=== PATIENT | male | born 1980 | race African-American/Black ===

== ENCOUNTER 2018-05-21 03:39 | Emergency (ER) | payer OTHER, MEDICAID, SELFPAY ==
--- NOTE | 2018-05-21 03:42 | DI.CT.S_ITS ---
PROCEDURE: CT HEAD/BRAIN WO CON INDICATIONS: visual change, confusion TECHNIQUE: Noncontrast 4.5 mm thick angled axial sections acquired from the foramen magnum to the vertex, with coronal and sagittal reformats. For radiation dose reduction, the following was used: automated exposure control, adjustment of mA and/or kV according to patient size. COMPARISON: None. FINDINGS: Image quality: Excellent. CSF spaces: Basal cisterns are patent. No extra-axial fluid collections. Ventricles are normal in size and shape. Brain: No midline shift. No intracranial masses or hemorrhage. Merchant-white matter interface is normal. Skull and face: Calvarium and visualized facial bones are intact, without suspicious lesions. Sinuses: Visualized sinuses and mastoids are clear. IMPRESSION: No acute intracranial disease process. Dictated by: Ambar Hernandez MD, PhD on 05/21/2018 at 7:28 Approved by: Ambar Hernandez MD, PhD on 05/21/2018 at 7:31
[2018-05-21 03:47] VITALS: BP 137/97; PULSE 77; RESP 20; TEMP 36.7; O2SAT 98; BMI 24.7
--- NOTE | 2018-05-21 04:07 | ED_ITS ---
HPI - Psych General Chief Complaint: Eye Problems Stated Complaint: seeing flashing lights confused Time Seen by Provider: 05/21/18 03:42 Source: patient Mode of arrival: ambulatory Limitations: no limitations History of Present Illness HPI Narrative: 38-year-old male smoker with history of smoking methamphetamines and untreated mental illness presents with a chief complaint some confusion, paranoia and a brief episode of seeing spots just prior to arrival. He denies any recent injury, falls or assaults. He has had no fever or chills. He denies nausea, vomiting or diarrhea. He states he has not taken bipolar medications in 2 years and does okay with controlling diet, exercise and avoiding significant alcohol and street drugs. He states nothing is significantly out of the normal in terms of his routine lately but he has this episode tonight which has bothered him. He last used methamphetamines 2 weeks ago per his own admission Onset (ago): hour(s) Duration: constant History of same: Yes Relieving factors: none Exacerbating factors: alcohol and drug use Context: recent drug abuse Associated psychiatric symptoms: racing thoughts Associated symptoms: confusion Treatments prior to arrival: none Related Data Home Medications Medication Instructions Recorded Confirmed DIVALPROEX SODIUM (Depakote) 250 mg PO BID #0 04/30/06 LITHIUM CARBONATE (Eskalith) 300 mg PO BID #0 04/30/06 QUETIAPINE FUMARATE (Seroquel) 50 mg PO #0 04/30/06 QUETIAPINE FUMARATE (Seroquel) 200 mg PO #0 04/30/06 Allergies Allergy/AdvReac Type Severity Reaction Status Date / Time No Known Drug Allergies Allergy Verified 05/21/18 03:58 Review of Systems Constitutional Denies chills, Denies fever(s), Denies lethargy and Denies weakness Eyes Reports change in vision, Denies eye discharge, Denies irritation, Denies loss of vision and Reports seeing flashes ENT Ears, Nose, Mouth, and Throat: Denies change in voice, Denies neck pain and Denies sore throat Cardiovascular Denies chest pain, Denies irregular heart rhythm, Denies lightheadedness, Denies palpitations, Denies dyspnea, Denies dyspnea on exertion and Denies orthopnea Respiratory Denies cough, Denies dyspnea, Denies dyspnea on exertion and Denies wheezing Gastrointestinal Gastrointestinal: Denies abdominal pain, Denies change in bowel habits, Denies diarrhea, Denies nausea and Denies vomiting Genitourinary Denies hematuria, Denies flank pain, Denies urinary incontinence and Denies urinary urgency Musculoskeletal Denies neck pain Integumentary/Breasts Denies pruritus, Denies erythema, Denies rash and Denies wounds Neurologic Reports confusion, Denies loss of vision and Denies weakness Psychiatric Denies anxiety, Reports confusion, Denies depression, Denies homicidal ideation and Denies suicidal ideation Endocrine Denies palpitations Hematologic/Lymphatic Denies easy bruising Allergic/Immunologic Denies wheezing [facility] Social History (Updated 05/21/18 @ 04:34 by Jesus Haynes DO) Smoking Status: Current every day smoker alcohol intake: current substance use type: methamphetamine Exam Narrative Exam Narrative: GENERAL: 38-year-old male is very pleasant and interactive. He does have racing and paranoid thoughts HEAD: Atraumatic. Normocephalic. No temporal or scalp tenderness. EYES: Pupils equal round and reactive. Extraocular motions intact. No scleral icterus. No injection or drainage. ENT: Nose without bleeding, purulent drainage or septal hematoma. Throat without erythema, tonsillar hypertrophy or exudate. Uvula midline. Airway patent. NECK: Trachea midline. No JVD or lymphadenopathy. Supple, nontender, no meningeal signs. CARDIOVASCULAR: Regular rate and rhythm without murmurs, gallops, or rubs. RESPIRATORY: Clear to auscultation. Breath sounds equal bilaterally. No wheezes, rales, or rhonchi. GASTROINTESTINAL: Abdomen soft, non-tender, nondistended. No hepato- splenomegaly, or palpable masses. No guarding. EXTREMITIES: No clubbing, cyanosis, or edema. No joint tenderness, effusion, or edema noted. BACK: Nontender without deformity or crepitance. No flank tenderness. NEURO: AOx3. Rapid, pressured speech, but coherent SKIN: No rash or erythema. Initial Vital Signs Initial Vital Signs: Vital Signs Temperature 98.1 F 05/21/18 03:47 Pulse Rate 77 05/21/18 03:47 Respiratory Rate 20 05/21/18 03:47 Blood Pressure 137/97 H 05/21/18 03:47 Pulse Oximetry 98 05/21/18 03:47 Course Orders Ordered: ED Orders 05/21/18 03:42 CT head/brain wo con Stat 05/21/18 04:03 Basic Metabolic Panel Stat Complete Blood Count AUTO DIFF Stat [place] Stat 05/21/18 04:19 Urinalysis Sreen (Dip Only) Stat Urine Drug Screen, Rapid Stat Discontinued Medications Olanzapine (Zyprexa Zydis) 10 mg PO NOW ONE Stop: 05/21/18 04:58 Last Admin: 05/21/18 05:03 Dose: 10 mg Vital Signs - 8 hr 05/21/18 03:47 Temperature 98.1 F Pulse Rate 77 Respiratory Rate 20 Blood Pressure 137/97 H Pulse Oximetry 98 MDM - Psych Lab Data Result diagrams: 05/21/18 04:03 05/21/18 04:03 Lab Results 05/21/18 05/21/18 05/21/18 Range/Units 04:03 04:03 04:03 WBC 8.9 (4.5-11.0) X10^3/uL RBC 4.95 (4.5-5.9) X10^6/uL Hgb 13.7 (13.5-17.5) g/dL Hct 39.8 L (41-53) % MCV 80.4 (80-100) fL MCH 27.6 (26-34) PG MCHC 34.4 (30-36) % RDW 14.1 (11.6-14.8) % Plt Count 192 (150-400) X10^3/uL Neut % (Auto) 69.9 (50-75) % Lymph % (Auto) 23.2 L (25-40) % [place] % (Auto) 6.0 (3-14) % Eos % (Auto) 0.5 L (2-4) % Baso % (Auto) 0.4 (0-2) % Neut # (Auto) 6200 (0360-4935) /uL Lymph # (Auto) 2100 (6100-0997) /uL [place] # (Auto) 500 (0-900) /uL Eos # (Auto) 0 (0-450) /uL Baso # (Auto) 0 (0-100) /uL Sodium 142 (137-145) mmol/L Potassium 3.6 (3.4-5.1) mmol/L Chloride 104 (98-107) mmol/L Carbon Dioxide 27 (22-32) mmol/L BUN 21 H (9-20) mg/dL Creatinine 1.00 (0.66-1.25) mg/dL Estimated GFR > 60.0 (>60) mL/min BUN/Creatinine Ratio 21.0 (6-22) Glucose 90 (70-100) mg/dL Calcium 9.6 (8.4-10.2) mg/dL Urine Color Urine Appearance Urine pH (4.5-8.0) Ur Specific [place] (1.000-1.035) Urine Protein (Negative) Urine Glucose (UA) (Negative) g/dL Urine Ketones (NEGATIVE) Urine Occult Blood (Negative) Urine Nitrate (Negative) Urine Bilirubin (NEGATIVE) Urine Urobilinogen (0.2) E.U./dL Ur Leukocyte Esterase (NEGATIVE) Urine Opiates Screen (Negative) Ur Oxycodone Screen (Negative) Urine Methadone Screen (Negative) Ur Barbiturates Screen (Negative) U Tricyclic Antidepress (Negative) Ur Phencyclidine Scrn (Negative) Ur Amphetamines Screen (Negative) U Methamphetamines Scrn (Negative) Ur MDMA Scrn (Ecstasy) (Negative) U Benzodiazepines Scrn (Negative) [place] < 0.2 L (0.6-1.2) mmol/L Urine Cocaine Screen (Negative) U Marijuana (THC) Screen (Negative) 05/21/18 05/21/18 Range/Units 04:19 04:19 WBC (4.5-11.0) X10^3/uL RBC (4.5-5.9) X10^6/uL Hgb (13.5-17.5) g/dL Hct (41-53) % MCV (80-100) fL MCH (26-34) PG MCHC (30-36) % RDW (11.6-14.8) % Plt Count (150-400) X10^3/uL Neut % (Auto) (50-75) % Lymph % (Auto) (25-40) % [place] % (Auto) (3-14) % Eos % (Auto) (2-4) % Baso % (Auto) (0-2) % Neut # (Auto) (4852-6339) /uL Lymph # (Auto) (3148-4301) /uL [place] # (Auto) (0-900) /uL Eos # (Auto) (0-450) /uL Baso # (Auto) (0-100) /uL Sodium (137-145) mmol/L Potassium (3.4-5.1) mmol/L Chloride (98-107) mmol/L Carbon Dioxide (22-32) mmol/L BUN (9-20) mg/dL Creatinine (0.66-1.25) mg/dL Estimated GFR (>60) mL/min BUN/Creatinine Ratio (6-22) Glucose (70-100) mg/dL Calcium (8.4-10.2) mg/dL Urine Color Yellow Urine Appearance Clear Urine pH 6.5 (4.5-8.0) Ur Specific [place] 1.025 (1.000-1.035) Urine Protein 1+ H (Negative) Urine Glucose (UA) Negative (Negative) g/dL Urine Ketones 1+ H (NEGATIVE) Urine Occult Blood Negative (Negative) Urine Nitrate Negative (Negative) Urine Bilirubin Negative (NEGATIVE) Urine Urobilinogen 1.0 (0.2) E.U./dL Ur Leukocyte Esterase Negative (NEGATIVE) Urine Opiates Screen Negative (Negative) Ur Oxycodone Screen Negative (Negative) Urine Methadone Screen Negative (Negative) Ur Barbiturates Screen Negative (Negative) U Tricyclic Antidepress Negative (Negative) Ur Phencyclidine Scrn Negative (Negative) Ur Amphetamines Screen Positive H (Negative) U Methamphetamines Scrn Positive H (Negative) Ur MDMA Scrn (Ecstasy) Positive H (Negative) U Benzodiazepines Scrn Negative (Negative) [place] (0.6-1.2) mmol/L Urine Cocaine Screen Negative (Negative) U Marijuana (THC) Screen Negative (Negative) Imaging Data CT scan - head: Radiologist's impression: NAP Discharge Plan Departure Patient Disposition: Home Clinical Impression: Manic behavior, Polysubstance abuse Instructions: DI for Bipolar Disorder Activity Restrictions/Additional Instructions: *You have been diagnosed with [ bipolar disorder, polysubstance abuse ] *What to do: *Take medications as directed *Follow up with your primary care provider in 2-3 days, call for an appointment. Let them know you were seen in the Emergency Department and that we ask that you be seen in follow up *Return to ER if you should have any new, worsening or concerning symptoms Prescriptions: No Action LITHIUM CARBONATE (Eskalith) 300 mg PO BID Qty: 0 RF: 0 QUETIAPINE FUMARATE (Seroquel) 50 mg PO Qty: 0 RF: 0 DIVALPROEX SODIUM (Depakote) 250 mg PO BID Qty: 0 RF: 0 QUETIAPINE FUMARATE (Seroquel) 200 mg PO Qty: 0 RF: 0 Referrals: [facility] [Outside]
[2018-05-21 04:16] LABS: Add Manual Diff / Slide Review NO; Basophils Absolute Auto 0 /uL (0-100); Basophils Percent Auto 0.4 % (0-2); Eosinophils Absolute Auto 0 /uL (0-450); Eosinophils Percent Auto 0.5 % (2-4); Hematocrit 39.8 % (41-53); Hemoglobin 13.7 g/dL (13.5-17.5); Lymphocytes Absolute Auto 2100 /uL (1100-4500); Lymphocytes Percent Auto 23.2 % (25-40); Mean Corpuscular HGB Conc 34.4 % (30-36); Mean Corpuscular Hemoglobin 27.6 PG (26-34); Mean Corpuscular Volume 80.4 fL (80-100); Monocytes Absolute Auto 500 /uL (0-900); Neutrophils Absolute Auto 6200 /uL (1500-7000); Neutrophils Percent Auto 69.9 % (50-75); Platelet Count 192 X10^3/uL (150-400); Red Blood Cell Count 4.95 X10^6/uL (4.5-5.9); Red Cell Distribution Width 14.1 % (11.6-14.8); White Blood Cell Count 8.9 X10^3/uL (4.5-11.0)
[2018-05-21 04:24] LABS: Blood Urea Nitrogen 21 mg/dL (9-20); Calcium 9.6 mg/dL (8.4-10.2); Carbon Dioxide 27 mmol/L (22-32); Chloride 104 mmol/L (98-107); Estimated Glomerular Filt Rate > 60.0 mL/min (>60); Glucose 90 mg/dL (70-100); HEMOLYSIS < 15 (0-50); Potassium 3.6 mmol/L (3.4-5.1); Sodium 142 mmol/L (137-145)
[2018-05-21 04:25] LABS: Appearance Urine UA CLEAR; Bilirubin Urine UA NEGATIVE (NEGATIVE); Color Urine UA YELLOW; Glucose Urine UA NEGATIVE (Negative); Ketones Urine UA 1+ (NEGATIVE); Leukocyte Esterase Urine UA NEGATIVE (NEGATIVE); Nitrite Urine UA NEGATIVE (Negative); Occult Blood Urine UA NEGATIVE (Negative); Protein Urine UA 1+ (Negative); Specific Gravity Urine UA 1.025 (1.000-1.035); pH Urine UA 6.5 (4.5-8.0)
[2018-05-21 04:29] LABS: Urine Tetrahydrocannabinol Negative (Negative)
[2018-05-21 04:30] LABS: Urine Amphetamines Positive (Negative); Urine Barbiturates Negative (Negative); Urine Benzodiazepines Negative (Negative); Urine Cocaine Negative (Negative); Urine MDMA Positive (Negative); Urine Methadone Negative (Negative); Urine Methamphetamines Positive (Negative); Urine Morphine/Opi cutoff 2000 Negative (Negative); Urine Oxycodone Negative (Negative); Urine Phencyclidine Negative (Negative); Urine Tricyclic Antidepressant Negative (Negative)
[2018-05-21 04:32] LABS: Lithium < 0.2 mmol/L (0.6-1.2)
[2018-05-21] MEDS: OLANZapine ODT 10 MG TAB PO (05:03)
[2018-05-21 05:40] VITALS: BP 135/87; PULSE 113; RESP 20; O2SAT 96
== END 2018-05-21 05:37 | disposition home or self-care (01) ==
PROVIDERS: Emergency Provider Emergency Medicine
DX: F30.10 Manic episode without psychotic symptoms, unspecified (principal)
CPT/HCPCS: 36415; 70450; 80048; 80178; 80305; 81003; 85025

== ENCOUNTER 2018-05-21 07:36 | Emergency (ER) | payer OTHER, MEDICAID, SELFPAY ==
[2018-05-21] VITALS (18 sets, daily range): BP systolic 76–102; BP diastolic 49–82; PULSE 57–95; RESP 10–23; TEMP 36.2; O2SAT 97–100
[2018-05-21] MEDS: NALOXONE 0.4 MG/ML VIAL NASAL (07:45)
--- NOTE | 2018-05-21 07:45 | ED.AMS ---
HPI - Altered Mental Status General Chief Complaint: Toxicology Problem Stated Complaint: Altered Status Time Seen by Provider: 05/21/18 07:39 Source: EMS Mode of arrival: EMS Limitations: altered mental status History of Present Illness HPI narrative: 38-year-old male who was just discharged from this emergency department several hours ago with at times reported to be alert and oriented x3 was brought back into the emergency department by EMS after they were called because the patient [place]umbling in the road. There was no reports of trauma. arrived by EMS in on a backboard and a cervical collar unable to provide any HPI or review of systems Related Data Home Medications Medication Instructions Recorded Confirmed DIVALPROEX SODIUM (Depakote) 250 mg PO BID #0 04/30/06 LITHIUM CARBONATE (Eskalith) 300 mg PO BID #0 04/30/06 QUETIAPINE FUMARATE (Seroquel) 50 mg PO #0 04/30/06 QUETIAPINE FUMARATE (Seroquel) 200 mg PO #0 04/30/06 Allergies Allergy/AdvReac Type Severity Reaction Status Date / Time No Known Drug Allergies Allergy Verified 05/21/18 03:58 Review of Systems Review of Systems ROS Unobtainable: Unobtainable due to mental status/LOC Exam Initial Vital Signs Initial Vital Signs: Vital Signs Temperature 97.2 F L 05/21/18 07:40 Pulse Rate 70 05/21/18 07:40 Respiratory Rate 15 05/21/18 07:40 Blood Pressure 102/82 05/21/18 07:40 Pulse Oximetry 100 05/21/18 07:40 Const General: No acute distress Orientation: obtunded Limitations: altered mental status [facility] Head: normal to inspection and normocephalic Eyes Pupils: pupil size bilaterally 1 Resp Effort & Inspection: normal respiratory effort Auscultation: clear to auscultation bilaterally Cardio Rate: regular rate Rhythm: regular rhythm Pulses: radial pulses present GI Inspection: non-distended Palpation: soft Skin Rashes: no rashes Neuro Other: Moves all 4 extremities spontaneously, GCS of 10, does respond to his name however does not answer any questions. Extrem General: capillary refill normal and No edema Psych Appearance: grossly normal and well kempt Scores GCS [place] coma scale eye opening: To sound Kay coma scale verbal response: Sounds Kay coma scale motor response: Localising Kay coma scale total score: 10 Course Orders Ordered: ED Orders 05/21/18 07:56 CT head/brain wo con Stat 05/21/18 08:00 Complete Blood Count AUTO DIFF Stat Comprehensive Metabolic Panel Stat Ethanol (ETOH) Stat Lipase Stat Discontinued Medications Sodium Chloride (Normal Saline 0.9%) 1,000 mls @ 1,000 mls/hr IV BOLUS ONE Stop: 05/21/18 08:42 Last Infusion: 05/21/18 09:32 Dose: 0 mls/hr Admin: 05/21/18 08:04 Dose: 1,000 mls/hr Sodium Chloride (Normal Saline 0.9%) 1,000 mls @ 1,000 mls/hr IV BOLUS ONE Stop: 05/21/18 10:29 Last Infusion: 05/21/18 10:43 Dose: 0 mls/hr Admin: 05/21/18 09:33 Dose: 1,000 mls/hr Naloxone HCl (Narcan) 0.4 mg NASAL NOW ONE Stop: 05/21/18 07:44 Last Admin: 05/21/18 07:45 Dose: 0.4 mg Vital Signs - 8 hr 05/21/18 07:40 05/21/18 08:00 05/21/18 08:19 Temperature 97.2 F L Pulse Rate 70 73 72 Respiratory Rate 15 Blood Pressure 102/82 Blood Pressure [Left Arm] 94/73 85/59 L Pulse Oximetry 100 05/21/18 08:22 05/21/18 08:45 05/21/18 09:00 Temperature Pulse Rate 75 73 75 Respiratory Rate 12 13 13 Blood Pressure Blood Pressure [Left Arm] 82/56 L 81/56 L 81/63 L Pulse Oximetry 98 97 97 05/21/18 09:30 05/21/18 09:49 05/21/18 10:20 Temperature Pulse Rate 70 66 74 Respiratory Rate 23 14 13 Blood Pressure Blood Pressure [Left Arm] 76/57 L 84/62 L 77/49 L Pulse Oximetry 100 100 100 05/21/18 11:08 05/21/18 11:30 05/21/18 12:00 Temperature Pulse Rate 70 71 57 L Respiratory Rate 13 15 Blood Pressure Blood Pressure [Left Arm] 76/53 L 76/53 L 76/59 L Pulse Oximetry 100 100 100 05/21/18 12:18 05/21/18 12:30 05/21/18 12:59 Temperature Pulse Rate 67 70 74 Respiratory Rate 12 15 19 Blood Pressure Blood Pressure [Left Arm] 76/59 L 77/62 L 77/62 L Pulse Oximetry 100 100 100 05/21/18 13:04 05/21/18 13:30 Temperature Pulse Rate 95 H 79 Respiratory Rate 22 10 L Blood Pressure Blood Pressure [Left Arm] 80/60 L 82/59 L Pulse Oximetry 100 100 MDM - Altered Mental Status Lab Data Attestation: I reviewed the patient's lab results. Result diagrams: 05/21/18 08:00 05/21/18 08:00 Lab Results 05/21/18 05/21/18 Range/Units 08:00 08:00 WBC 8.4 (4.5-11.0) X10^3/uL RBC 4.89 (4.5-5.9) X10^6/uL Hgb 13.6 (13.5-17.5) g/dL Hct 39.1 L (41-53) % MCV 79.9 L (80-100) fL MCH 27.7 (26-34) PG MCHC 34.7 (30-36) % RDW 13.8 (11.6-14.8) % Plt Count 188 (150-400) X10^3/uL Neut % (Auto) 65.9 (50-75) % Lymph % (Auto) 26.8 (25-40) % [place] % (Auto) 6.5 (3-14) % Eos % (Auto) 0.3 L (2-4) % Baso % (Auto) 0.5 (0-2) % Neut # (Auto) 5500 (3913-2209) /uL Lymph # (Auto) 2300 (7746-8503) /uL Hughes # (Auto) 500 (0-900) /uL Eos # (Auto) 0 (0-450) /uL Baso # (Auto) 0 (0-100) /uL Sodium 141 (137-145) mmol/L Potassium 3.6 (3.4-5.1) mmol/L Chloride 105 (98-107) mmol/L Carbon Dioxide 25 (22-32) mmol/L BUN 20 (9-20) mg/dL Creatinine 0.90 (0.66-1.25) mg/dL Estimated GFR > 60.0 (>60) mL/min BUN/Creatinine Ratio 22.2 H (6-22) Glucose 84 (70-100) mg/dL Calcium 9.6 (8.4-10.2) mg/dL Total Bilirubin 0.8 (0.2-1.3) mg/dL AST 39 (17-59) IU/L ALT 19 L (21-72) IU/L Alkaline Phosphatase 67 (38-126) U/L Total Protein 7.9 (6.3-8.2) g/dL Albumin 4.7 (3.5-5.0) g/dL Globulin 3.2 (1.7-4.1) g/dL Albumin/Globulin Ratio 1.5 (1.0-2.8) Lipase 78 (23-300) U/L Ethyl Alcohol < 10 mg/dL Imaging Data CT scan - head: Radiologist's impression: [address] [address] [address] Scan Report Signed Patient: Andi Cross#: [id number] : 1980Acct:[id number] Age/Sex: 38 / MDate of Service: 05/21/18 Loc: ED Accession Number: [id number] Procedure: CT head/brain wo con Ordering Provider: Man Fitzgerald D.O. PROCEDURE: CT HEAD/BRAIN WO CON INDICATIONS: Altered mental status TECHNIQUE: Noncontrast 4.5 mm thick angled axial sections acquired from the foramen magnum to the vertex, with coronal and sagittal reformats. For radiation dose reduction, the following was used: automated exposure control, adjustment of mA and/or kV according to patient size. COMPARISON: [facility], CT, CT HEAD/BRAIN WO CON, 05/21/2018, 3:57. FINDINGS: Image quality: Excellent. CSF spaces: Basal cisterns are patent. No extra-axial fluid collections. Ventricles are normal in size and shape. Brain: No midline shift. No intracranial masses or hemorrhage. Merchant-white matter interface is normal. Skull and face: Calvarium and visualized facial bones are intact, without suspicious lesions. Sinuses: Visualized sinuses and mastoids are clear except for a small left maxillary sinus mucus retention cyst. IMPRESSION: The brain parenchyma appears normal for age. Note is made of a small posterior inferior left maxillary sinus mucus retention cyst. No acute sinusitis is suspected. No air-fluid level is found. Dictated by: Kb Mohr M.D. on 05/21/2018 at 8:32 Approved by: Kb Mohr M.D. on 05/21/2018 at 8:35 MDM Narrative Medical decision making narrative: Head CT is unremarkable. Labs are unremarkable. patient was observed here in the emergency department for several hours. He became more active. Was alert oriented x3. Ambulated around the emergency department. Was at baseline. No signs of trauma. patient was instructed not to drive for the next 24 hours. He was given return precautions. He expressed understanding and agreement plan. Discharge Plan Departure Patient Disposition: Home Clinical Impression: Altered mental status Qualifiers: Altered mental status type: unspecified Qualified Code(s): R41.82 - Altered mental status, unspecified Instructions: DI for Drug Abuse and Drug Addiction Activity Restrictions/Additional Instructions: No driving for the next 24 hours or in the future if you decide to partake in intoxicating substances. I do recommend you contact your primary care doctor for follow-up. Return to the emergency department for any new or worsening symptoms. Prescriptions: No Action LITHIUM CARBONATE (Eskalith) 300 mg PO BID Qty: 0 RF: 0 QUETIAPINE FUMARATE (Seroquel) 50 mg PO Qty: 0 RF: 0 DIVALPROEX SODIUM (Depakote) 250 mg PO BID Qty: 0 RF: 0 QUETIAPINE FUMARATE (Seroquel) 200 mg PO Qty: 0 RF: 0
--- NOTE | 2018-05-21 07:56 | DI.CT.S_ITS ---
PROCEDURE: CT HEAD/BRAIN WO CON INDICATIONS: Altered mental status TECHNIQUE: Noncontrast 4.5 mm thick angled axial sections acquired from the foramen magnum to the vertex, with coronal and sagittal reformats. For radiation dose reduction, the following was used: automated exposure control, adjustment of mA and/or kV according to patient size. COMPARISON: [facility], CT, CT HEAD/BRAIN WO CON, 05/21/2018, 3:57. FINDINGS: Image quality: Excellent. CSF spaces: Basal cisterns are patent. No extra-axial fluid collections. Ventricles are normal in size and shape. Brain: No midline shift. No intracranial masses or hemorrhage. Merchant-white matter interface is normal. Skull and face: Calvarium and visualized facial bones are intact, without suspicious lesions. Sinuses: Visualized sinuses and mastoids are clear except for a small left maxillary sinus mucus retention cyst. IMPRESSION: The brain parenchyma appears normal for age. Note is made of a small posterior inferior left maxillary sinus mucus retention cyst. No acute sinusitis is suspected. No air-fluid level is found. Dictated by: Kb Mohr M.D. on 05/21/2018 at 8:32 Approved by: Kb Mohr M.D. on 05/21/2018 at 8:35
[2018-05-21] MEDS: SODIUM CHLORIDE 0.9% 1,000 ML 1000 ML IV ×2 (08:04→09:33)
[2018-05-21 08:16] LABS: Add Manual Diff / Slide Review NO; Basophils Absolute Auto 0 /uL (0-100); Basophils Percent Auto 0.5 % (0-2); Eosinophils Absolute Auto 0 /uL (0-450); Eosinophils Percent Auto 0.3 % (2-4); Hematocrit 39.1 % (41-53); Hemoglobin 13.6 g/dL (13.5-17.5); Lymphocytes Absolute Auto 2300 /uL (1100-4500); Lymphocytes Percent Auto 26.8 % (25-40); Mean Corpuscular HGB Conc 34.7 % (30-36); Mean Corpuscular Hemoglobin 27.7 PG (26-34); Mean Corpuscular Volume 79.9 fL (80-100); Monocytes Absolute Auto 500 /uL (0-900); Monocytes Percent Auto 6.5 % (3-14); Neutrophils Absolute Auto 5500 /uL (1500-7000); Neutrophils Percent Auto 65.9 % (50-75); Platelet Count 188 X10^3/uL (150-400); Red Blood Cell Count 4.89 X10^6/uL (4.5-5.9); Red Cell Distribution Width 13.8 % (11.6-14.8); White Blood Cell Count 8.4 X10^3/uL (4.5-11.0)
--- NOTE | 2018-05-21 08:26 | PC.NURSE ---
administered 0.4mg Narcan inter-nasal at [address] Fitzgerald at bedside. No change in status noted.
--- NOTE | 2018-05-21 08:31 | PC.NURSE ---
Patient remains in view of nursing station and this RN at all times. Pt resting comfortably, respirations even, and unlabored. All monitoring devices in place with alarms set. Still no change in GCS.
[2018-05-21 08:35] LABS: Alanine Aminotransferase 19 IU/L (21-72); Albumin 4.7 g/dL (3.5-5.0); Albumin Globulin Ratio 1.5 (1.0-2.8); Alkaline Phosphatase 67 U/L (38-126); Aspartate Aminotransferase 39 IU/L (17-59); BUN Creatinine Ratio 22.2 (6-22); Bilirubin Total 0.8 mg/dL (0.2-1.3); Blood Urea Nitrogen 20 mg/dL (9-20); Calcium 9.6 mg/dL (8.4-10.2); Carbon Dioxide 25 mmol/L (22-32); Chloride 105 mmol/L (98-107); Estimated Glomerular Filt Rate > 60.0 mL/min (>60); Ethanol (ETOH) < 10 mg/dL; Globulin 3.2 g/dL (1.7-4.1); Glucose 84 mg/dL (70-100); HEMOLYSIS < 15 (0-50); Lipase 78 U/L (23-300); Potassium 3.6 mmol/L (3.4-5.1); Sodium 141 mmol/L (137-145); Total Protein 7.9 g/dL (6.3-8.2)
--- NOTE | 2018-05-21 09:02 | PC.NURSE ---
Patient more easily abusable. Still startles when touched. B/P remains in the 80[address] Dr. Fitzgerald is aware. NS bolus still infusing. Respirations even and unlabored, sleeping comfortably.
--- NOTE | 2018-05-21 09:41 | PC.NURSE ---
pt remains resting with respirations even and unlabored. Remains on all monitoring devices. o2 reading low, patient has o2 monitor wrapped around neck and pulling at it (all while still sleeping.) I awoke patient and unwrapped the cord. Patient thrashes around bed and swings arms in my direction upon being awoken. Reminded patient that he is in the hospital and what is going on. Patient takes a few minutes to calm down and stop thrashing. I untangled him and he returns to sleeping. O2 100 on RA. Co2 [address] mejia aware. Second bag of fluids started at this time.
--- NOTE | 2018-05-21 12:01 | PC.NURSE ---
patient remains in visual field of this RN and nursing station. Pt has rolled to his side and curled up in a ball. Any time he is touched he begins thrashing in bed and swinging his arms. Pt still not talking or saying anything other than sounds. Respirations even and unlabored. Pt has blanket pulled up over head. lights are turned off to let pt rest.
--- NOTE | 2018-05-21 14:43 | PC.NURSE ---
Patient urinated and came out of room stating he had to go. Pt called his Aunt to give him update. States we gave him something to make him weird and that we are weird. Pt apprears in no acute distress. Informed pt we gave him fluids and narcan.
== END 2018-05-21 14:46 | disposition home or self-care (01) ==
PROVIDERS: Emergency Provider Emergency Medicine
DX: R41.82 Altered mental status, unspecified (principal); F30.10 Manic episode without psychotic symptoms, unspecified; F19.10 Other psychoactive substance abuse, uncomplicated
CPT/HCPCS: 36415; 36591; 70450; 80048; 80053; 80178; 80305; 80320; 81003; 83690; 85025; 96360; 96361; 99283; 99284; 99285; J2310

== ENCOUNTER 2019-06-04 18:35 | Emergency (ER) | payer OTHER, MEDICAID, SELFPAY ==
--- NOTE | 2019-06-04 18:42 | ED.GENADULT ---
HPI - General Adult General Chief complaint: Anxiety Stated complaint: states low blood sugar Time Seen by Provider: 06/04/19 18:38 Source: patient Mode of arrival: Ambulatory Limitations: no limitations History of Present Illness HPI narrative: 39-year-old male with history of anxiety. Also has a history of drug and alcohol abuse but has been sober for several weeks/months here for evaluation what he thinks is low blood sugar. Patient states that he has had low blood sugar in the past. He states that he was on a run today trying to ?get in shape? he states that he had his yee tied on his sweatshirt. He states that he was becoming short of breath. He could get his yee and a tight. He states there were cars next to him and he started to have a panic attack. He also states that he felt the same way that he felt when his blood sugar was low in the past. He denies any recent drug or alcohol use. No fevers. No chest pain. Feel somewhat better now compared to when the symptoms started. Related Data Home Medications Medication Instructions Recorded Confirmed DIVALPROEX SODIUM (Depakote) 250 mg PO BID #0 04/30/06 LITHIUM CARBONATE (Eskalith) 300 mg PO BID #0 04/30/06 QUETIAPINE FUMARATE (Seroquel) 50 mg PO #0 04/30/06 QUETIAPINE FUMARATE (Seroquel) 200 mg PO #0 04/30/06 Allergies Allergy/AdvReac Type Severity Reaction Status Date / Time No Known Drug Allergies Allergy Verified 06/04/19 18:57 Review of Systems Constitutional Constitutional: Denies fever(s) ENT Ears, Nose, Mouth, and Throat: Denies vertigo and Reports dizziness Cardiovascular Cardiovascular: Denies chest pain, Denies diaphoresis, Denies rapid heart rate, Denies irregular heart rhythm, Reports lightheadedness, Denies palpitations and Denies dyspnea Respiratory Respiratory: Denies cough and Denies dyspnea Gastrointestinal Gastrointestinal: Denies abdominal pain, Denies nausea and Denies vomiting Musculoskeletal Musculoskeletal: Denies myalgias and Denies arthralgias Integumentary/Breasts Skin/Breast: Denies lesions and Denies rash Neurologic Neurologic: Denies behavioral changes, Denies vertigo, Reports dizziness, Denies lack of coordination and Denies focal weakness Psychiatric Psychiatric: Reports anxiety, Denies behavioral changes, Denies depression and Reports panic attacks Endocrine Endocrine: Denies palpitations Patient History Medical History Drug abuse (Acute) Social History Smoking Status: Current every day smoker alcohol intake: current substance use type: methamphetamine Smoking Status: Current every day smoker Substance Use Type: heroin, methamphetamine and unknown Exam Initial Vital Signs Initial Vital Signs: Vital Signs Temperature 98.5 F 06/04/19 18:48 Pulse Rate 134 H 06/04/19 18:48 Respiratory Rate 22 06/04/19 18:48 Blood Pressure 119/79 06/04/19 18:48 Pulse Oximetry 100 06/04/19 18:48 Const General: cooperative, comfortable and well developed Limitations: mental status not altered HENMT Head: normal to inspection and normocephalic Resp Effort & Inspection: normal respiratory effort Auscultation: clear to auscultation bilaterally Cardio Rate: tachycardic Rhythm: regular rhythm Pulses: radial pulses present GI Inspection: non-distended Palpation: soft and No firm Skin Lesions: no lesions Rashes: no rashes Neuro General: alert, awake and oriented x3 Cognition: normal cognition Speech: speech normal Motor: muscle tone normal throughout Sensory Exam: no sensory deficits noted Extrem General: normal to inspection and capillary refill normal Psych Appearance: grossly normal and well kempt Scores GCS [place] coma scale eye opening: Spontaneous Kay coma scale verbal response: Orientated Kay coma scale motor response: Obey commands [place] coma scale total score: 15 Course Orders Ordered: ED Orders 06/04/19 18:55 EKG-12 Lead Stat Vital Signs Vital signs: Vital Signs - 8 hr 06/04/19 18:48 Temperature 98.5 F Pulse Rate 134 H Respiratory Rate 22 Blood Pressure 119/79 Pulse Oximetry 100 Medical Decision Making Lab Data Lab results reviewed: Yes I reviewed the patient's lab results. Labs: Point of Care Testing Glucose POC 100 Point of care testing: Point of Care Testing Glucose POC 100 ECG Data Attestation: I personally reviewed and interpreted this ECG as follows: Prior ECG tracings: not available for review Interpretation: Sinus tachycardia Ventricular rate of 133 Normal QRS Normal QTC No ST T wave changes MDM Narrative Medical decision making narrative: Patient was tachycardic however alert and oriented. His blood sugar was unremarkable. He was not hypoglycemic. EKG shows a sinus tachycardia. Patient states that he felt like his anxiety is a little better. He denied an offer for anxiety medications. He denies any drug or alcohol abuse however was somewhat jittery and tachycardic. Offered to allow the patient to stay in the room for a short period of time in order to calm down. He agreed to this. During this time while we were dealing with the patient's the patient disconnected himself from his monitor and eloped. He left prior to being discharged him prior to receiving any discharge instructions. Discharge Plan Departure Patient Disposition: Left Against Medical Advice Clinical Impression: Acute anxiety, Tachycardia Prescriptions: No Action LITHIUM CARBONATE (Eskalith) 300 mg PO BID Qty: 0 RF: 0 QUETIAPINE FUMARATE (Seroquel) 50 mg PO Qty: 0 RF: 0 DIVALPROEX SODIUM (Depakote) 250 mg PO BID Qty: 0 RF: 0 QUETIAPINE FUMARATE (Seroquel) 200 mg PO Qty: 0 RF: 0 Stand Alone Forms: Against Medical Advice
[2019-06-04 18:48] VITALS: BP 119/79; PULSE 134; RESP 22; TEMP 36.9; O2SAT 100
== END 2019-06-04 20:18 | disposition left against medical advice (07) ==
PROVIDERS: Emergency Provider Emergency Medicine
DX: F41.9 Anxiety disorder, unspecified (principal); R00.0 Tachycardia, unspecified
CPT/HCPCS: 82962; 93005; 93010; 99281; 99283